=== PATIENT | male | born 1940 | race Caucasian/White ===

== ENCOUNTER 2017-04-15 10:04 | Day surgery (SDC) | payer MEDICARE ==
[~2017-04-15] VITALS: Ht 180.3 cm; Wt 78.9 kg
[2017-04-15] VITALS (8 sets, daily range): BP systolic 129–134; BP diastolic 69–75; PULSE 46–56; RESP 16–18; TEMP 97.5–97.8; O2SAT 95–98
[~2017-04-15 10:04] MED LIST: ALPR.25 PO; ASPI81 PO; ATOR40TA PO; CHLOR PO; CLIN1CAP6 PO; COUM5TAB PO; FLOR250C PO; HYDR-3129 PO; LEVE500 PO; METO50TA PO; MULT-65 PO; NS 1000P @30 MLS/HR (KVO) IV SCH; OMEP20CA5 PO; Z.0.COMMODE-3:1; Z.0.CPM; Z.0.WALKERFRONT
[2017-04-15] MEDS ORDERED: VITA10002 PO (10:49)
[2017-04-15] MEDS ORDERED: MULTTAB77 (10:49)
[2017-04-15] MEDS ORDERED: AMLO10TA2 PO (10:49)
[2017-04-15] MEDS ORDERED: HYDR-3583 PO (10:49)
[2017-04-15] MEDS ORDERED: COUM5TAB PO (10:49)
[2017-04-15] MEDS ORDERED: LISI10TA3 PO (10:49)
[2017-04-15] MEDS ORDERED: ARTIDRO EACH EYE (10:49)
[2017-04-15] MEDS ORDERED: ALPR0.25 PO (10:49)
[2017-04-15] MEDS ORDERED: LEVE500T8 PO (10:50)
[2017-04-15] MEDS ORDERED: ATOR40TA16 PO (10:50)
[2017-04-15] MEDS ORDERED: HEPARIN-NS/PF INJ 500 ML ONE (12:13)
[2017-04-15] MEDS ORDERED: MIDAZOLAM HCL 2 MG/2 ML VIAL ONE ×2 (12:15→12:33)
[2017-04-15] MEDS ORDERED: BIVALIRUDIN 250 MG VIAL ONE (12:54)
[2017-04-15] MEDS ORDERED: CLOPIDOGREL 300 MG TAB ONE ×2 (13:12→13:18)
[2017-04-15] MEDS ORDERED: NITROGLYCERIN 400 MCG/SPRAY 4.9 GM BOTTLE SL ONE (13:15)
[2017-04-15] MEDS ORDERED: TEMAZEPAM 15 MG CAP PO PRN (13:15)
[2017-04-15] MEDS ORDERED: LIDOCAINE 2% JELLY 30 ML TUBE TOP PRN (13:15)
[2017-04-15] MEDS ORDERED: ONDANSETRON HCL 4 MG/2 ML VIAL IVP PRN (13:15)
[2017-04-15] MEDS ORDERED: MORPHINE SULFATE 4 MG/ML INJ IV PUSH PRN (13:15)
[2017-04-15] MEDS ORDERED: ACETAMINOPHEN 325 MG TAB PO PRN (13:15)
[2017-04-15] MEDS ORDERED: BACITRACIN OINT 0.9 GM PKT TOP ONE (13:15)
[2017-04-15] MEDS ORDERED: oxyCODONE/ACETAMINOPHEN 5 MG/325 MG TAB PO PRN (13:15)
[2017-04-15] MEDS ORDERED: MISC INFORMATION XX ONE (13:15)
[2017-04-15] MEDS ORDERED: PLAV75TA29 PO (13:20)
--- NOTE | 2017-04-15 13:36 | CATHPROC ---
[facility] HIS Report Study Information Study Number Admission Scheduled Start Study Start [id number] Apr 15 2017 10:04AM 04/15/2017 Apr 15 2017 12:04PM [place] Service Cardiac Catheterization Admit Source Facility Department Other [facility] - Account General Manager Physician and Clinical Staff Initial [facility] Dental Hygiene Instructor Janel Bae,COLLEEN Recorder Wallace Crowley RCIS(BS) Guillermina Cole RCIS TECH2 Procedures Performed Procedure Location (Site) Vessel Name Coronary Angiograms LCA Left Coronary Coronary Angiograms RCA Right Coronary Drug Eluting Inflatio OM2 Mid CIRC L Heart Cath PTCA OM2 Mid CIRC Wire insertion Fem Art (right) Femoral Art Equipment Time Service Administrator Description Size Mfg Part Number Used/Scraped TRANSDUCER, TRUWAVE [id number] 12:36 BOGGS BAE * Used W/STOCKCOCK *[id number] *[id number] *[id number] *[id number] 12:36 [employer] PACK, CCL CUSTOM * Used *[id number] 12:36 [employer] SUPPORT, ARTERIAL ADULT [id number] Used [id number] 12:36 [email or web address] PACER PEN, SKIN DUAL W/ RULER * Used *[id number] 12:58 MEDTRONIC BALLOON, 2.0 X 20MM EUPHORA 20MM Used *[id number] STENT, 2.25 26 RESOLUTE [id number] 13:06 MEDTRONIC 2.25 26 Used INTEGRITY RX *[id number] 13:04 Luxr 30 ADELA INDEFLATOR Used *[id number] BAND, RADIAL COMPRESSION TR [id number] 13:12 Luxr 24CM Used SHORT 24 *[id number] SHEATH, FR6 RADIAL PRELUDE 12:36 Luxr FR 6 [id number] Used EASE 11CM [id number] 12:36 Luxr WIRE, EXCHANGE 260CM 3MMJ 260CM Used *[id number] 12:36 NYCOMED OMNIPAQUE, 350 MG, 150ML 150ML [id number] Used [id number] 12:36 [employer] BLANKET,WARM AIR CCL * Used *[id number] WIRE, RUNTHROUGH NS FLOPPY [id number] 12:59 TERUMO [employer] 180CM Used .014 180CM *[id number] Equipment Model, Serial, Lot Number and Expiration Data Description Model Number Serial Number Lot Number Expiration Date STENT, 2. 26 RESOLUTE [id number] 06-20-2018 INTEGRITY RX History: Current Medications Medication Dosage/Unit Route Frequency Last Date/Time Taken Coumadin Statins (any) History: Allergies Allergy Reaction Cymbalta UPSET STOMACH Lamotrigine UPSET STOMACH Topamax UPSET STOMACH HORSERADISH GASTRIC UPSET History: Risk Factors Family History of Hypertension Dyslipidemia Previous [place] Previous Heart Failure Premature CAD No No No No No Prior Valve Prior PCI Prior CABG Surgery No No No Cerebrovascular Peripheral Artery Chronic Lung On Dialysis Diabetes Disease Disease Disease No No No No No History: Symptoms/Diagnosis Selection Items Chest pain History: Stress Tests Stress or Imaging Studies Performed Yes Standard Exercise Stress Test No Stress Echo No Stress Test SPECT Stress Test SPECT Result Stress Test SPECT Ischemia Risk/Extent Yes Positive Intermediate Stress Test CMR No Cardiac CTA Coronary Calcium Score No No History: Other Current Smoker No Labs Hgb (g/dl) Hct (%) WBC (l/cumm) Platelets (thousands) 11.60-17.00 35.00-51.00 4.00-11.00 150.00-450.00 13.7 42 7.1 203 Glucose (mg/dl) BUN (mg/dl) Creatinine (mg/dl) BUN:Creatinine (1:x) 74.00-106.00 7.00-18.00 0.50-1.30 10.00-20.00 44 18 0.9 20 Na (meq/l) K (meq/l) 136.00-145.00 3.50-5.10 141 4.4 INR (PTT:PT) 0.90-1.10 2.3 CPK-MB (ng/ML) 0.50-3.60 Not Drawn Medication Medication Total Dose (Bolus/Oral) Medication Total Dosage/Unit 1% XYLOCAINE 20 mL ANGIOMAX BOLUS 11.8 mL FENTANYL 100 mcg NITROGLYCERIN S/L 0.4 mg NTG (IC) 200 mcg PLAVIX 600 mg RADIAL COCKTAIL 5 mL (Bolus) VERSED 3 mg Medications (Bolus/Oral) Medication Time Given Dosage/Unit Administered By Reason VERSED 04/15/2017 12:24:00 PM 1 mg Janel Bae 1 mg VERSED given in lab by Janel Bae RN in Left Wrist via Peripheral IV. Ordered by Alcon Yost. FENTANYL 04/15/2017 12:25:00 PM 50 mcg Janel Bae 50 mcg FENTANYL given in lab by Janel Bae RN in Left Wrist via Peripheral IV. Ordered by Alcon Cárdenas. 1% XYLOCAINE 04/15/2017 12:32:54 PM 20 mL Alcon Yost 20 mL 1% XYLOCAINE given in lab by Alcon Yost in Right Radial via Subcutaneous. Ordered by Alcon Yost. VERSED 04/15/2017 12:34:00 PM 1 mg Janel Bae 1 mg VERSED given in lab by Janel Bae RN in Left Wrist via Peripheral IV. Ordered by Alcon Yost. Ntg 200mcg Verapamil 2.5mg Heparin RADIAL COCKTAIL 04/15/2017 12:34:13 PM 5 mL (Bolus) Alcon Yost 2000U 5 mL (Bolus) RADIAL COCKTAIL given in lab by Janel Bae RN via Radial. Using [Solution Name]. Ordered by Alcon Yost. Reason: Ntg 200mcg FENTANYL 04/15/2017 12:35:00 PM 25 mcg Janel Bae 25 mcg FENTANYL given in lab by Janel Bae RN in Left Wrist via Peripheral IV. Ordered by Alcon Cárdenas. ANGIOMAX BOLUS 04/15/2017 12:56:00 PM 11.8 mL Janel Bae 11.8 mL ANGIOMAX BOLUS given in lab by Janel Bae RN in Left Wrist via Peripheral IV. Ordered by Alcon Yost. VERSED 04/15/2017 12:57:55 PM 1 mg Janel Bae 1 mg VERSED given in lab by Janel Bae RN in Left Wrist via Peripheral IV. Ordered by Alcon Yost. FENTANYL 04/15/2017 12:58:00 PM 25 mcg Janel Bae 25 mcg FENTANYL given in lab by Janel Bae RN in Left Wrist via Peripheral IV. Ordered by Alcon Cárdenas. NTG (IC) 04/15/2017 1:09:13 PM 200 mcg Alcon Yost 200 mcg NTG (IC) given in lab by Alcon Yost via Intra-coronary. Ordered by Alcon Yost. PLAVIX 04/15/2017 1:12:46 PM 600 mg Janel Bae 600 mg PLAVIX given in lab by Janel Bae RN via Oral. Ordered by Alcon Yost. NITROGLYCERIN S/L 04/15/2017 1:16:13 PM 0.4 mg Janel Bae 0.4 mg NITROGLYCERIN S/L given in lab by Janel Bae RN via Oral. Ordered by Alcon Yost. Medication (Drip) Medication Time Given Dosage/Unit Concentration/Unit Diluent (ml) Solutio n ANGIOMAX DRIP 04/15/2017 1:00:00 PM 1.75 mg/kg/hr 250 mg 50 NaCl .9 1.75 mg/kg/hr ANGIOMAX DRIP given in lab by Janel Bae RN in Left Wrist via Peripheral IV. Pu mp/Drip Flow = 27.54 ml/hr using NaCl .9 with a concentration of 250 mg in 50 ml. Ordered by Alcon Yost. IV Solutions 04/15/2017 12:07:34 PM 0 mL (IV) 500 NaCl .9 Patient arrived on IV Solutions in Left Wrist via Peripheral IV. Pump/Drip Flow = 20 ml/hr using NaCl .9. Initial Case Assessment Cardiovascular HR Rhythm NIBP Chest Pain 51 SINUS FIDEL 123/61 0 Edema Present Skin color Skin None Normal Warm Dry Circulatory - Right Pulses Dorsalis Pedis Femoral Radial 3 3 2 Scale (0,1,2,3,4,d) Circulatory - Left Pulses Dorsalis Pedis Femoral Radial 3 3 Scale (0,1,2,3,4,d) Circulatory - Lower Extremities Color Lower Right Color Lower Left Normal Normal Neurological State Oriented to time-place- Alert Moves all extremities person Respiration - General SpO2 (%) 95 Final Case Assessment Cardiovascular HR Rhythm NIBP Chest Pain 51 SINUS FIDEL 123/61 0 Edema Present Skin color Skin None Normal Warm Dry Circulatory - Right Pulses Dorsalis Pedis Femoral Radial 3 3 2 Scale (0,1,2,3,4,d) Circulatory - Left Pulses Dorsalis Pedis Femoral Radial 3 3 Scale (0,1,2,3,4,d) Circulatory - Lower Extremities Color Lower Right Color Lower Left Normal Normal Neurological State Oriented to time-place- Alert Moves all extremities person Respiration - General SpO2 (%) 95 Chronological Log Time Study Chronological Log 12:07:00 Patient arrived via Bed. 12:07:11 Patient Name, D.O.B, / Armband Verified By R.N. 12:07:12 Consent signed by the physician and the patient and verified by the Account General Manager staff. 12:07:13 Pre-op and post- op instructions given; patient acknowledges understanding of instructions. 12:07:20 Allens test performed on the right radial and ulnar artery. 12:07:25 Patient has been NPO for Less than 6Hrs. 12:07:27 Skin Breakdown- 12:07:30 Patient Warmer Placed on the Table. 12:07:33 A # 20 IV was noted in the Wrist (left). Grade = 0 12:07:34 Patient arrived on IV Solutions in Left Wrist via Peripheral IV. Pump/Drip Flow = 20 ml/hr using NaCl .9. 12:07:35 History and physical on the chart or being dictated. Assessment: Initial Case, HR=51 BPM, Rhythm=SINUS FIDEL, GPNP=142/61 mmhg, Chest Pain=0, Edema= None, Color=Normal, Skin = Warm, Dry Right Pulses: Fransico Ped=3, Femoral=3, Radial=2 Left Pulses: Fransico Ped=3, Femoral=3 12:07:36 Lower Right Extremities: Color=Normal Lower Left Extremities: Color=Normal Neurological: State=Alert, Ox3, ANTUNEZ Respiration: SpO2=95 % Vitals capture started with the following parameters, Patient=Adult, Interval=5 min, Initial Pr ecmprh=659 mmHg, 12:22:06 Deflation Rate=5 mmHg 12:22:50 HR=48 bpm, PQXP=151/61 mmhg, SpO2=97.0 %, Resp=11 B/min, Pain=0, Madelin=10, Ahumada=2 12:23:00 MD arrived. 12:24:00 1 mg VERSED given in lab by Janel Bae, RN in Left Wrist via Peripheral IV. Ordered by Alcon Yost. 12:25:00 50 mcg FENTANYL given in lab by Janel Bae, COLLEEN in Left Wrist via Peripheral IV. Orde red by Alcon Yost. 12:27:41 HR=54 bpm, KNBM=710/70 mmhg, SpO2=95.0 %, Resp=39 B/min, Pain=0, Madelin=10, Ahumada=2 12:29:22 Bilateral groins prepped with 2% chlorhexidine, and with a 3 min. waiting time. 12:32:40 HR=50 bpm, FKRV=419/64 mmhg, SpO2=95.0 %, Resp=15 B/min, Pain=0, Madelin=10, Ahumada=2 Time Out. Correct patient, correct procedure,correct physician, ,power injector loaded or not l oaded with contrast with 12:32:46 surgical team present. Time Out Concurred by MD, individual staff and SPONSORSHIP COORDINATOR in procedure 12:32:53 Case Start 12:32:54 20 mL 1% XYLOCAINE given in lab by Alcon Yost in Right Radial via Subcutaneous. Ordered by Alcon Yost. 12:34:00 1 mg VERSED given in lab by Janel Bae RN in Left Wrist via Peripheral IV. Ordered by Alcon Yost. 12:34:08 Access site was RIGHT Radial Artery. A SHEATH, FR6 RADIAL PRELUDE EASE 11CM FR 6 was advanced into the Radial (right) using the Perc utaneous 12:34:09 technique. 5 mL (Bolus) RADIAL COCKTAIL given in lab by Janel Bae RN via Radial. Using [Solution Name]. Ordered by 12:34:13 Alcon Yost. Reason: Ntg 200mcg 12:35:00 25 mcg FENTANYL given in lab by Janel Bae RN in Left Wrist via Peripheral IV. Orde red by Alcon Yost. 12:35:05 Pressure channel 1 zeroed. A JR 5.0 INFINITI CATHETER FR 6 was advanced over a wire. OMNIPAQUE, 350 MG, 150ML 150ML was us ed for 12:36:12 injections. 12:36:33 Reference ECG taken 12:37:43 HR=50 bpm, CJXG=521/61 mmhg, SpO2=86.0 %, Resp=10 B/min, Pain=0, Madelin=10, Ahumada=2 Recorded Pressure: LV, HR=55, Condition=Condition 1 12:39:58 (Left Ventricle) LV 111/-3/6 Recorded Pressure: LV, Ao, HR=52, Condition=Condition 1 12:40:23 (Left Ventricle) LV 111/-2/8, (Aorta) Ao 106/51/73 Recorded Pressure: Ao, HR=50, Condition=Condition 1 12:40:38 (Aorta) Ao 99/48/69 12:42:07 The RCA was injected and visualized at various angles. OMNIPAQUE, 350 MG, 150ML 150ML used . After removing the current catheter a JL 3.5 INFINITI CATHETER FR 6 was advanced over a WIRE, E XCHANGE 260CM 12:42:41 3MMJ 260CM. 12:42:46 HR=51 bpm, HLNV=320/63 mmhg, SpO2=96.0 %, Resp=14 B/min, Pain=0, Madelin=10, Ahumada=2 12:45:20 The LCA was injected and visualized at various angles. OMNIPAQUE, 350 MG, 150ML 150ML used . 12:47:43 HR=48 bpm, NLCM=875/56 mmhg, SpO2=97.0 %, Resp=12 B/min, Pain=0, Madelin=10, Ahumada=2 12:52:42 HR=49 bpm, IFRD=791/59 mmhg, SpO2=98.0 %, Resp=42 B/min, Pain=0, Madelin=10, Ahumada=2 After removing the current catheter a JL 4.0 GUIDE CATHETER FR 6 was advanced over a WIRE, EXCH PAU 260CM 12:54:52 3MMJ 260CM. 11.8 mL ANGIOMAX BOLUS given in lab by Janel Bae RN in Left Wrist via Peripheral IV. O rdered by Priyank 12:56:00 Alcon. 12:57:55 1 mg VERSED given in lab by Janel Bae RN in Left Wrist via Peripheral IV. Ordered by Alcon Yost. 12:58:00 25 mcg FENTANYL given in lab by Janel Bae RN in Left Wrist via Peripheral IV. Orde red by Alcon Yost. 12:58:14 HR=51 bpm, FTQW=741/74 mmhg, SpO2=97.0 %, Resp=22 B/min 12:58:19 A WIRE, RUNTHROUGH NS FLOPPY .014 180CM 180CM was inserted via Fem Art (right). 1.75 mg/kg/hr ANGIOMAX DRIP given in lab by Janel Bae RN in Left Wrist via Peripheral IV. Pump/Drip Flow 13:00:00 = 27.54 ml/hr using NaCl .9 with a concentration of 250 mg in 50 ml. Ordered by Alcon Yost. 13:01:30 Interventional wire has crossed the lesion 13:02:42 HR=59 bpm, KWIQ=254/88 mmhg, SpO2=97.0 %, Resp=27 B/min, Pain=0, Madelin=10, Ahumada=2 A BALLOON, 2.0 X 20MM EUPHORA 20MM was inserted over WIRE, RUNTHROUGH NS FLOPPY .014 180CM 180C M via 13:02:49 the Radial (right). A BALLOON, 2.0 X 20MM EUPHORA 20MM over a WIRE, RUNTHROUGH NS FLOPPY .014 180CM 180CM in the OM 2 Mid 13:03:09 was inflated using a 30 ADELA INDEFLATOR at 6 adela for 33 sec. A BALLOON, 2.0 X 20MM EUPHORA 20MM over a WIRE, RUNTHROUGH NS FLOPPY .014 180CM 180CM in the OM 2 Mid 13:03:55 was inflated using a 30 ADELA INDEFLATOR at 6 adela for 22 sec. 13:05:40 Balloon Removed. A STENT, 2.25 26 RESOLUTE INTEGRITY RX 2.25 26 was advanced through a JL 4.0 GUIDE CATHETER FR 6 over a 13:06:26 WIRE, RUNTHROUGH NS FLOPPY .014 180CM 180CM. A STENT, 2.25 26 RESOLUTE INTEGRITY RX 2.25 26 was deployed using a 30 ADELA INDEFLATOR at 9 atmo spheres for 13:06:54 18 seconds in the OM2 Mid. 13:07:43 HR=52 bpm, AOAC=231/77 mmhg, SpO2=98.0 %, Resp=23 B/min, Pain=0, Madelin=10, Ahumada=2 13:08:00 Delivery device removed 13:09:13 200 mcg NTG (IC) given in lab by Alcon Yost via Intra-coronary. Ordered by Jemima Yost en. 13:11:31 Wire removed 13:11:39 Catheter was removed 13:12:12 Case End 13:12:46 HR=49 bpm, WIUM=971/68 mmhg, SpO2=98.0 %, Resp=48 B/min, Pain=0, Madelin=10, Ahumada=2 13:12:46 600 mg PLAVIX given in lab by Janel Bae, COLLEEN via Oral. Ordered by Alcon Yost. Assessment: Final Case, HR=51 BPM, Rhythm=SINUS FIDEL, HPOO=008/61 mmhg, Chest Pain=0, Edema=No ne, Color=Normal, Skin = Warm, Dry Right Pulses: Fransico Ped=3, Femoral=3, Radial=2 Left Pulses: Fransico Ped=3, Femoral=3 13:13:31 Lower Right Extremities: Color=Normal Lower Left Extremities: Color=Normal Neurological: State=Alert, Ox3, ANTUNEZ Respiration: SpO2=95 % Radial Compression Device Used. 10 mLs of air placed in BAND, RADIAL COMPRESSION TR SHORT 24 24 CM. Affected 13:14:15 hand 98 % O2 saturation. 13:14:47 Sterile dressing applied to site 13:14:48 No case complications noted. 13:14:49 Cine recording checked. 13:15:01 Bedside Report will be given. 13:15:02 Implantable Device card placed in patient's chart. 13:15:03 Contrast Scanned 13:15:08 A Left Heart Cath was performed. 13:16:13 0.4 mg NITROGLYCERIN S/L given in lab by Janel Bae RN via Oral. Ordered by Alcon Yost. 13:17:48 HR=49 bpm, ACUA=771/68 mmhg, SpO2=99.0 %, Resp=12 B/min, Pain=0, Madelin=10, Ahumada=2 13:23:00 [facility] - Contrast Media Used In Study Contrast Total Opened (mL) Total Used (mL) Total Wasted (mL) Omnipaque 180 180 0 End Study - Maximum Contrast Load Max Contrast Load (mL) 437.1 End Study - Radiation Exposure Fluoro Time (minutes) 8.4 End Study - Patient Disposition Complications Transferred To Interventional Outcome No Telemetry Bed successful
--- NOTE | 2017-04-15 14:18 | MA ---
cc: JOSE ANGEL TAO DATE: 04/15/2017 INDICATION Unstable angina. PROCEDURE PERFORMED 1. Fluoroscopy with interpretation. 2. Coronary angiography. 3. Left heart catheterization. 4. Percutaneous intervention with drug-eluting stent to the second obtuse marginal branch. METHOD The risks, benefits and alternatives were discussed with the patient. The patient understood and consented to the procedure. The patient was brought to the catheterization lab and placed on the catheterization table. Right wrist was prepped and draped in sterile fashion. Right wrist was anesthetized with 2% lidocaine. Right radial artery was cannulated and a 6-Mexican 7 cm sheath was placed without difficulty. LEFT HEART CATHETERIZATION A 6-Mexican JR-5 catheter was advanced across the aortic valve without difficulty. Intraventricular hemodynamics measured at 111 over 2 mmHg. Left end-diastolic pressure was 12 mmHg. No significant aortic stenosis by transaortic valve or pullback gradient. CORONARY ANGIOGRAPHY 1. Left main is short but angiographically normal. 2. Left anterior descending artery has 30% stenosis proximally. Midsegment also has 30% stenosis. The distal left anterior descending coronary artery has mild luminal irregularities. 3. Left circumflex has mild luminal irregularities, about 30% stenosis throughout the proximal mid segment. There is a first obtuse marginal branch with some mild luminal irregularities. Second obtuse marginal branch has 75% seven tandem stenosis. Third obtuse marginal branch has mild luminal irregularities. 4. The right coronary is dominant vessel giving rise to small posterior descending branch. Right coronary has 50% stenosis in the mid segment. PERCUTANEOUS INTERVENTION Given the patient's continued ongoing symptoms, we elected to proceed with revascularization. He is having some intermittent chest pain throughout the intervention suggestive that this was hemodynamically significant. Angiomax was administered throughout the entire procedure to maintain appropriate anticoagulation. Left coronary circulation was selectively engaged with a 6-Mexican JL-4 catheter. 0.014 inch 180 cm Fanzo run-through wire was navigated down the distal second obtuse marginal branch without difficulty. A 2.0 x 20 mm RX Euphora balloon was deployed on two sequential inflations in the second obtuse marginal branch. Repeat angiography still showed severe residual stenosis. A 2.25 x 26 mm RX Resolute drug-eluting stent was advanced down the second obtuse marginal branch and deployed. Repeat angiography showed no residual stenosis, CHER III flow. Wire was removed. Guide catheter was removed. HemoBand was applied. CONCLUSION 1. Severe second obtuse marginal branch stenosis. 2. Successful percutaneous intervention with drug-eluting stent to the second obtuse marginal branch. 3. Normal left-sided filling pressure. PLAN Hopefully this will translate well with symptomatic improvement. The patient will be monitored closely for any post procedural complications. Anticipate discharge tomorrow. MD PIOTR Cazares/CATRACHITO /1:15 PM /2:00 PM
[2017-04-15] MEDS ORDERED: IOHEXOL 350 MG/ML 100 ML BTL (for Cath Lab) OTHER ONE (14:42)
[2017-04-15] MEDS ORDERED: BIVALIRUDIN INJ 250 MG in SODIUM CHLORIDE 0.9% INJ 50 ML IV SCH (15:00)
[2017-04-15] MEDS: oxyCODONE/ACETAMINOPHEN 10 MG/325 MG TAB PO PRN ×2 (16:46→21:45)
[2017-04-15] MEDS: SODIUM CHLOR 0.9% 1000 ML INJ 1,000 ML IV SCH ×2 (16:47→23:13)
[2017-04-15] MEDS: LISINOPRIL 10 MG TAB PO SCH (21:44)
[2017-04-15] MEDS: levETIRAcetam 500 MG TAB PO SCH (21:44)
[2017-04-16] VITALS (10 sets, daily range): BP systolic 125–133; BP diastolic 59–69; PULSE 49–76; RESP 18; TEMP 97.7–97.9; O2SAT 97–99
[2017-04-16 06:14] LABS: AUTOMATED NEUTROPHIL # 4.7 TH/MM3 (1.8-7.7); BASOPHIL % 0.5 % (0.0-2.0); EOSINOPHIL # 0.2 TH/MM3 (0-0.4); EOSINOPHIL % 2.4 % (0.0-4.0); HEMATOCRIT 38.7 % (39.0-51.0); HEMO FLAGS DIFF FINAL; LYMPH % 23.1 % (9.0-44.0); LYMPHOCYTE # 1.7 TH/MM3 (1.0-4.8); MEAN CELL VOLUME 94.3 FL (80.0-100.0); MEAN CORPUSCULAR HEMOGLOBIN 31.9 PG (27.0-34.0); MEAN CORPUSCULAR HGB CONC 33.9 % (32.0-36.0); PLATELET COUNT 149 TH/MM3 (150-450); RED CELL DISTRIBUTION WIDTH 13.2 % (11.6-17.2); WHITE BLOOD COUNT 7.4 TH/MM3 (4.0-11.0)
[2017-04-16 06:45] LABS: BICARBONATE 25.4 MEQ/L (21.0-32.0); POTASSIUM 4.1 MEQ/L (3.5-5.1)
[2017-04-16 06:48] LABS: HDL CHOLESTEROL 35.7 MG/DL (40.0-60.0)
[2017-04-16] MEDS ORDERED: ISOSORBIDE MONONITRATE 60 MG TAB PO SCH (07:00)
--- NOTE | 2017-04-16 07:51 | PD.CARD.PN ---
Subjective Subjective Remarks denies any angina Objective Vital Signs / I&O Vital Signs Date Time Temp Pulse Resp B/P Pulse Ox O2 Delivery O2 Flow Rate FiO2 04/16/17 06:06 54 04/16/17 05:14 53 04/16/17 04:17 49 04/16/17 03:25 55 04/16/17 03:25 97.9 50 18 133/69 99 04/16/17 02:20 49 04/16/17 01:25 54 04/16/17 00:05 52 04/15/17 23:50 97.8 51 16 131/70 96 04/15/17 23:50 50 04/15/17 22:00 49 04/15/17 21:00 50 04/15/17 20:00 56 04/15/17 19:15 97.8 52 18 134/69 98 04/15/17 19:00 53 04/15/17 16:00 97.7 46 18 130/75 98 04/15/17 13:27 99 Room Air 04/15/17 10:51 97.5 56 18 129/75 95 I/O 04/15/17 04/15/17 04/15/17 04/16/17 04/16/17 04/16/17 07:00 15:00 23:00 07:00 15:00 23:00 Intake Total 740 ml 978 ml Output Total 500 ml 1225 ml Balance 240 ml -247 ml Intake Oral 540 ml 480 ml IV Total 200 ml 498 ml Output Urine Total 500 ml 1225 ml # Voids 3 Physical Exam GENERAL: Well-nourished, well-developed patient in no apparent distress. NECK: No JVD. No carotid bruit. CARDIOVASCULAR: Regular rate and rhythm. S1/S2 no murmur, rub, or gallop. RESPIRATORY: No accessory muscle use. Clear to auscultation. Breath sounds equal bilaterally. GASTROINTESTINAL: Abdomen soft, non-tender, nondistended. MUSCULOSKELETAL: Extremities without clubbing, cyanosis, or edema. right radial pulse 2+ Laboratory Laboratory Tests Test 04/15/17 04/16/17 10:35 05:23 Blood Type A POSITIVE Antibody Screen NEGATIVE White Blood Count 7.4 TH/MM3 Red Blood Count 4.10 MIL/MM3 Hemoglobin 13.1 GM/DL Hematocrit 38.7 % Mean Corpuscular Volume 94.3 FL Mean Corpuscular Hemoglobin 31.9 PG Mean Corpuscular Hemoglobin 33.9 % Concent Red Cell Distribution Width 13.2 % Platelet Count 149 TH/MM3 Mean Platelet Volume 8.9 FL Neutrophils (%) (Auto) 64.0 % Lymphocytes (%) (Auto) 23.1 % Monocytes (%) (Auto) 10.0 % Eosinophils (%) (Auto) 2.4 % Basophils (%) (Auto) 0.5 % Neutrophils # (Auto) 4.7 TH/MM3 Lymphocytes # (Auto) 1.7 TH/MM3 Monocytes # (Auto) 0.7 TH/MM3 Eosinophils # (Auto) 0.2 TH/MM3 Basophils # (Auto) 0.0 TH/MM3 CBC Comment DIFF FINAL Differential Comment Sodium Level 138 MEQ/L Potassium Level 4.1 MEQ/L Chloride Level 104 MEQ/L Carbon Dioxide Level 25.4 MEQ/L Anion Gap 9 MEQ/L Blood Urea Nitrogen 15 MG/DL Creatinine 0.99 MG/DL Estimat Glomerular Filtration 73 ML/MIN Rate Random Glucose 89 MG/DL Calcium Level 8.6 MG/DL Total Creatine Kinase 51 U/L Triglycerides Level 99 MG/DL Cholesterol Level 109 MG/DL LDL Cholesterol 54 MG/DL HDL Cholesterol 35.7 MG/DL Cholesterol/HDL Ratio 3.05 RATIO Assessment and Plan Problem List: (1) Atrial fibrillation (2) Hypertension Assessment and Plan CAD s/p PCI DINO OM2 - on Plavix, ASA, FILIPPO-I, Isosorbide. No BB due to bradycardia. Will start atorvastatin 40 mg daily. Importance of diet and exercise explained to the patient. He will f/u in our office in one week HTN - well controlled A-fib - remain in sinus rhythm Wenceslao Pedersen Apr 16, 2017 07:51
[2017-04-16] MEDS: LISINOPRIL 10 MG TAB PO SCH (08:21)
[2017-04-16] MEDS: oxyCODONE/ACETAMINOPHEN 10 MG/325 MG TAB PO PRN (08:22)
[2017-04-16] MEDS: levETIRAcetam 500 MG TAB PO SCH (08:22)
[2017-04-16] MEDS ORDERED: CLOPIDOGREL 75 MG TAB PO SCH (09:00)
[2017-04-16] MEDS ORDERED: ASPIRIN 81 MG CHEW TAB PO SCH (09:00)
[2017-04-16] MEDS ORDERED: ATORVASTATIN 40 MG TAB PO SCH (09:00)
--- NOTE | 2017-04-16 13:55 | EKG ---
Date Performed: 04/16/2017 Time Performed: 05:52:10 PTAGE: 76 years EKG: Sinus bradycardia with borderline 1st degree A-V block Low QRS voltages in limb leads Since previous tracing, no significant change noted Borderline ECG PREVIOUS TRACING : 06/01/2016 16.51 DOCTOR: Ceferino Mccabe Interpretating Date/Time 04/16/2017 13:55:29
== END 2017-04-16 11:23 | disposition home or self-care (01) ==
LOC: HDOC 10:04 → HDIC 10:04 → HCIN 16:02 → HDOC 04-16 11:23
PROVIDERS: ATTEND Internal Medicine
DX: I25.110 Atherosclerotic heart disease of native coronary artery with unstable angina pectoris (principal); R06.02 Shortness of breath; I10 Essential (primary) hypertension; I48.91 Unspecified atrial fibrillation; Z87.891 Personal history of nicotine dependence; R00.1 Bradycardia, unspecified
CPT/HCPCS: 80048; 80061; 82550; 85025; 86850; 86900; 86901; 93005; 93454; C1725; C1769; C1874; C1887; C1893; J0583; J1644; J2250; J3010; J7030; Q9967

== ENCOUNTER 2017-06-28 11:16 | Observation (INO) | payer MEDICARE ==
[~2017-06-28] VITALS: Ht 180.3 cm; Wt 82.0 kg
[2017-06-28] VITALS (8 sets, daily range): BP systolic 138–161; BP diastolic 67–82; PULSE 46–58; RESP 16–20; TEMP 97.6–98.5; O2SAT 96–100
[~2017-06-28 11:16] MED LIST changes: -ALPR.25 PO; +ALPR0.25 PO; +AMLO10TA2 PO; +ARTIDRO EACH EYE; -ASPI81 PO; -ATOR40TA PO; +ATOR40TA16 PO; -CHLOR PO; -CLIN1CAP6 PO; -FLOR250C PO; -HYDR-3129 PO; +HYDR-3583 PO; -LEVE500 PO; +LEVE500T8 PO; +LISI10TA3 PO; -METO50TA PO; -MULT-65 PO; +MULTTAB77; -NS 1000P @30 MLS/HR (KVO) IV SCH; -OMEP20CA5 PO; +PLAV75TA29 PO; +VITA10002 PO; -Z.0.COMMODE-3:1; -Z.0.CPM; -Z.0.WALKERFRONT
[2017-06-28] MEDS ORDERED: ASPIRIN 81 MG CHEW TAB PO ONE (11:45)
--- NOTE | 2017-06-28 12:00 | PD ---
HPI Chief Complaint: Chest Pain Time Seen by Provider: 11:46 Travel History International Travel<30 days: No Contact w/Intl Traveler<30days: No Traveled to known affect area: No History of Present Illness HPI 77-year-old male presents to the emergency department for evaluation of chest pain. He states that he has been having intermittent chest pain for several weeks. He recently had a cardiac catheterization done on April 15, [address] b[address]. He had successful percutaneous intervention with drug-eluting stent to the second obtuse marginal branch. He states he followed up with Dr. bain yesterday. However, yesterday evening, on his way home from dinner, he states he had bilateral chest tightness and burning. He was nauseous at that time. He went home and took one of his hydrocodone pills and watch TV. He states he was distracted and the pain decreased. He currently rates the pain 4/5. Reports history of chronic shoulder and neck pain so is unsure if he has any radiating pain, but does not believe he does. He does report associated shortness of breath. No fevers or chills. No cough or congestion. No abdominal pain. Patient states he drinks 2 glasses of wine daily, smokes marijuana. Denies any IV drug use. He does have history of seizures, but has not had any seizures since 2004. His refrigerator car icer is Dr. Bain. No history of blood clots. No travel since March. No leg edema. PFSH Past Medical History Arthritis: Yes Anxiety: Yes Cancer: Yes Cardiovascular Problems: Yes High Cholesterol: Yes Chemotherapy: No Diabetes: No Endocrine: No Gastrointestinal Disorders: Yes (ON OMEPARAZOLE) Glaucoma: No Genitourinary: No Hepatitis: No Hiatal Hernia: No Hypertension: Yes Immune Disorder: No Musculoskeletal: Yes (Boni shoulder pain; cervical fusion; sciatica) Neurologic: No Psychiatric: No Reproductive: No Respiratory: No Radiation Therapy: No Seizures: Yes Thyroid Disease: No Past Surgical History Abdominal Surgery: Yes (Abd mesh) AICD: No Body Medical Devices: ABDOMEN MESH Cardiac Surgery: No Ear Surgery: No Eye Surgery: Yes (BONI phaco with IOL) Genitourinary Surgery: No Gynecologic Surgery: Yes (Hysterectomy) Joint Replacement: No Neurologic Surgery: Yes (ANTERIOR CERVICAL FUSION C5-6) Oral Surgery: No Pacemaker: No Thoracic Surgery: No Other Surgery: Yes (BONI CARPAL TUNNEL RELEASE, right great toe(pins)) Social History Alcohol Use: Yes (wine nitely with dinner) Tobacco Use: No (quit 20 years ago) Substance Use: No Allergies-Medications (Allergen,Severity, Reaction): Coded Allergies: topiramate (Unverified Allergy, Severe, UPSET STOMACH, 04/30/17) duloxetine (Unverified Adverse Reaction, Mild, UPSET STOMACH, 04/30/17) lamotrigine (Unverified Adverse Reaction, Mild, UPSET STOMACH , 04/30/17) Uncoded Allergies: HORSERADISH (Adverse Reaction, Mild, GASTRIC UPSET, 08/22/15) Reported Meds & Prescriptions Reported Meds & Active Scripts Active Plavix (Clopidogrel Bisulfate) 75 Mg Tab 75 Mg PO DAILY Reported Levetiracetam 500 Mg Tab 500 Mg PO BID Atorvastatin (Atorvastatin Calcium) 40 Mg Tab 40 Mg PO HS Lisinopril 10 Mg Tab 10 Mg PO BID Amlodipine (Amlodipine Besylate) 10 Mg Tab 10 Mg PO DAILY Hydrocodone-Acetaminophen 10-325 mg Tab 1 Tab PO Q4H PRN Coumadin (Warfarin) 5 Mg Tab 5 Mg PO DAILY Alprazolam 0.25 Mg Tab 0.25 Mg PO Q8H PRN Vitamin B-12 (Cyanocobalamin) 1,000 Mcg Tab 1,000 Mcg PO DAILY Multi-Day (Multiple Vitamins W/ Iron) 1 Tab Tab Artificial Tears Opth Drops (Propylene Glycol-Glycerin Opth Drops) 1-0.3% Drops 1-2 Drop EACH EYE PRN PRN Review of Systems Except as stated in HPI: all other systems reviewed are Neg Physical Exam Narrative GENERAL: Well-nourished, well-developed male patient, ambulatory. Afebrile. SKIN: Focused skin assessment warm/dry. HEAD: Normocephalic. Atraumatic. EYES: No scleral icterus. No injection or drainage. NECK: Supple, trachea midline. No JVD or lymphadenopathy. CARDIOVASCULAR: Regular rhythm without murmurs, gallops, or rubs. Patient is bradycardic with heart rate in the 50s. RESPIRATORY: Breath sounds equal bilaterally. No accessory muscle use. Lungs sounds are clear to auscultation. GASTROINTESTINAL: Abdomen soft, non-tender, nondistended. MUSCULOSKELETAL: No cyanosis, or edema. BACK: Nontender without obvious deformity. No CVA tenderness. Data Data Last Documented VS Vital Signs Date Time Temp Pulse Resp B/P (MAP) Pulse Ox O2 Delivery O2 Flow Rate FiO2 06/28/17 13:00 56 18 143/79 (100) 98 Room Air 06/28/17 11:20 97.6 Orders Orders Electrocardiogram (06/28/17 11:44) Basic Metabolic Panel (Bmp) (06/28/17 11:44) Ckmb (Isoenzyme) Profile (06/28/17 11:44) Complete Blood Count With Diff (06/28/17 11:44) Magnesium (Mg) (06/28/17 11:44) Prothrombin Time / Inr (Pt) (06/28/17 11:44) Act Partial Throm Time (Ptt) (06/28/17 11:44) Troponin I (06/28/17 11:44) Chest, Single Ap (06/28/17 11:44) Ecg Monitoring (06/28/17 11:44) Bilateral Bp Monitoring (06/28/17 11:44) Iv Access Insert/Monitor (06/28/17 11:44) Oximetry (06/28/17 11:44) Oxygen Administration (06/28/17 11:44) Aspirin Chew (Aspirin Chew) (06/28/17 11:45) Sodium Chloride 0.9% Flush (Ns Flush) (06/28/17 11:45) Admit Order (Ed Use Only) (06/28/17 14:06) Labs Laboratory Tests Test 06/28/17 12:10 White Blood Count 5.3 TH/MM3 Red Blood Count 4.10 MIL/MM3 Hemoglobin 13.0 GM/DL Hematocrit 38.3 % Mean Corpuscular Volume 93.6 FL Mean Corpuscular Hemoglobin 31.8 PG Mean Corpuscular Hemoglobin Concent 34.0 % Red Cell Distribution Width 13.3 % Platelet Count 162 TH/MM3 Mean Platelet Volume 9.2 FL Neutrophils (%) (Auto) 58.8 % Lymphocytes (%) (Auto) 23.6 % Monocytes (%) (Auto) 13.2 % Eosinophils (%) (Auto) 3.7 % Basophils (%) (Auto) 0.7 % Neutrophils # (Auto) 3.1 TH/MM3 Lymphocytes # (Auto) 1.3 TH/MM3 Monocytes # (Auto) 0.7 TH/MM3 Eosinophils # (Auto) 0.2 TH/MM3 Basophils # (Auto) 0.0 TH/MM3 CBC Comment DIFF FINAL Differential Comment Prothrombin Time 23.2 SEC Prothromb Time International Ratio 2.0 RATIO Activated Partial Thromboplast Time 33.1 SEC Blood Urea Nitrogen 15 MG/DL Creatinine 0.99 MG/DL Random Glucose 104 MG/DL Calcium Level 8.3 MG/DL Magnesium Level 2.3 MG/DL Sodium Level 138 MEQ/L Potassium Level 4.2 MEQ/L Chloride Level 107 MEQ/L Carbon Dioxide Level 24.4 MEQ/L Anion Gap 7 MEQ/L Estimat Glomerular Filtration Rate 73 ML/MIN Total Creatine Kinase 75 U/L Troponin I LESS THAN 0.02 NG/ML MDM Medical Decision Making Medical Screen Exam Complete: Yes Emergency Medical Condition: Yes Medical Record Reviewed: Yes Interpretation(s) chest x-ray - CONCLUSION: No acute disease. Differential Diagnosis ACS versus chest wall pain versus anxiety versus pneumonia versus GERD Narrative Course 77-year-old male presents to the emergency department for evaluation of bilateral chest pain that has been ongoing for several weeks, but worsened last night. Switcher is Dr. bain. EKG shows sinus bradycardia, no acute ST changes. CBC, BMP, CK, troponin, PTT, PT/INR, chest x-ray are ordered and pending. Patient is given aspirin 162 mg by mouth. CBC shows no acute abnormality. BMP shows no acute abnormality. CK is 75. Troponin is less than 0.02. PTT is 33.1. PT/INR is 23.2/2.0. Chest x-ray shows no acute disease. 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 Tomas Adamson. He reviewed chart. He recommends admission to the chest pain center for further evaluation. Patient is agreeable to this. Diagnosis Primary Impression: Chest pain Qualified Codes: R07.9 - Chest pain, unspecified Admitting Information Admitting Physician Requests: Juju Coffey Jun 28, 2017 12:00
--- NOTE | 2017-06-28 12:21 | RADRPT ---
EXAM DATE/TIME: 06/28/2017 11:51 [facility] COMPARISON: CHEST SINGLE AP, May 29, 2016, 15:06. INDICATIONS : Short of breath. MEDICAL HISTORY : Hypertension. SURGICAL HISTORY : None. ENCOUNTER: Initial ACUITY: 1 day PAIN SCORE: 0/10 LOCATION: Bilateral chest FINDINGS: A single view of the chest demonstrates the lungs to be symmetrically aerated without evidence of mas s, infiltrate or effusion. The cardiomediastinal contours are unremarkable. Osseous structures are intact. CONCLUSION: No acute disease. Trav Diana MD FACR on June 28, 2017 at 12:19 Board Certified Radiologist. This report was verified electronically.
[2017-06-28 12:29] LABS: AUTOMATED NEUTROPHIL # 3.1 TH/MM3 (1.8-7.7); BASOPHIL % 0.7 % (0.0-2.0); EOSINOPHIL # 0.2 TH/MM3 (0-0.4); EOSINOPHIL % 3.7 % (0.0-4.0); HEMATOCRIT 38.3 % (39.0-51.0); HEMO FLAGS DIFF FINAL; LYMPH % 23.6 % (9.0-44.0); LYMPHOCYTE # 1.3 TH/MM3 (1.0-4.8); MEAN CELL VOLUME 93.6 FL (80.0-100.0); MEAN CORPUSCULAR HEMOGLOBIN 31.8 PG (27.0-34.0); MONO % 13.2 % (0.0-8.0); NEUT % 58.8 % (16.0-70.0); PLATELET COUNT 162 TH/MM3 (150-450); RED CELL DISTRIBUTION WIDTH 13.3 % (11.6-17.2); WHITE BLOOD COUNT 5.3 TH/MM3 (4.0-11.0)
[2017-06-28 12:37] LABS: APTT (PATIENT) 33.1 SEC (24.3-30.1); PROTHROMBIN TIME - PATIENT 23.2 SEC (9.8-11.6)
[2017-06-28 12:51] LABS: ANION GAP 7 MEQ/L (5-15); BICARBONATE 24.4 MEQ/L (21.0-32.0); BLOOD UREA NITROGEN 15 MG/DL (7-18); CHLORIDE 107 MEQ/L (98-107); GLOMERULAR FILTRATION RATE 73 ML/MIN (>89); MAGNESIUM 2.3 MG/DL (1.5-2.5); POTASSIUM 4.2 MEQ/L (3.5-5.1); SODIUM (NA) 138 MEQ/L (136-145)
[2017-06-28 13:06] LABS: CREATINE KINASE 75 U/L (39-308)
--- NOTE | 2017-06-28 14:21 | PD ---
Data Data Last Documented VS Vital Signs Date Time Temp Pulse Resp B/P (MAP) Pulse Ox O2 Delivery O2 Flow Rate FiO2 06/28/17 13:00 56 18 143/79 (100) 98 Room Air 06/28/17 11:20 97.6 Orders Orders Electrocardiogram (06/28/17 11:44) Basic Metabolic Panel (Bmp) (06/28/17 11:44) Ckmb (Isoenzyme) Profile (06/28/17 11:44) Complete Blood Count With Diff (06/28/17 11:44) Magnesium (Mg) (06/28/17 11:44) Prothrombin Time / Inr (Pt) (06/28/17 11:44) Act Partial Throm Time (Ptt) (06/28/17 11:44) Troponin I (06/28/17 11:44) Chest, Single Ap (06/28/17 11:44) Ecg Monitoring (06/28/17 11:44) Bilateral Bp Monitoring (06/28/17 11:44) Iv Access Insert/Monitor (06/28/17 11:44) Oximetry (06/28/17 11:44) Oxygen Administration (06/28/17 11:44) Aspirin Chew (Aspirin Chew) (06/28/17 11:45) Sodium Chloride 0.9% Flush (Ns Flush) (06/28/17 11:45) Admit Order (Ed Use Only) (06/28/17 14:06) Labs Laboratory Tests Test 06/28/17 12:10 White Blood Count 5.3 TH/MM3 Red Blood Count 4.10 MIL/MM3 Hemoglobin 13.0 GM/DL Hematocrit 38.3 % Mean Corpuscular Volume 93.6 FL Mean Corpuscular Hemoglobin 31.8 PG Mean Corpuscular Hemoglobin Concent 34.0 % Red Cell Distribution Width 13.3 % Platelet Count 162 TH/MM3 Mean Platelet Volume 9.2 FL Neutrophils (%) (Auto) 58.8 % Lymphocytes (%) (Auto) 23.6 % Monocytes (%) (Auto) 13.2 % Eosinophils (%) (Auto) 3.7 % Basophils (%) (Auto) 0.7 % Neutrophils # (Auto) 3.1 TH/MM3 Lymphocytes # (Auto) 1.3 TH/MM3 Monocytes # (Auto) 0.7 TH/MM3 Eosinophils # (Auto) 0.2 TH/MM3 Basophils # (Auto) 0.0 TH/MM3 CBC Comment DIFF FINAL Differential Comment Prothrombin Time 23.2 SEC Prothromb Time International Ratio 2.0 RATIO Activated Partial Thromboplast Time 33.1 SEC Blood Urea Nitrogen 15 MG/DL Creatinine 0.99 MG/DL Random Glucose 104 MG/DL Calcium Level 8.3 MG/DL Magnesium Level 2.3 MG/DL Sodium Level 138 MEQ/L Potassium Level 4.2 MEQ/L Chloride Level 107 MEQ/L Carbon Dioxide Level 24.4 MEQ/L Anion Gap 7 MEQ/L Estimat Glomerular Filtration Rate 73 ML/MIN Total Creatine Kinase 75 U/L Troponin I LESS THAN 0.02 NG/ML MDM Supervised Visit with PRATIK: Yes Narrative Course The history, exam, and medical decision-making in the associated midlevel provider note were completed with my assistance. I reviewed and agree with the findings presented. I attest that I had a [id number] encounter with the patient on the same day, and personally performed and documented my assessment and findings in the medical record. *My assessment and Findings this is a 77-year-old male who presents to the emergency department having had a stent placed [address] Yost with increasing chest discomfort. EKG is nonischemic. Initial troponin is negative. We spoke to Dr. Marin who was on-call for cardiology who recommended the patient be placed in the chest pain center. Sandy Carrillo MD Jun 28, 2017 14:21
--- NOTE | 2017-06-28 15:23 | HHI.HP ---
[facility] Primary Care Physician Mckay Carranza M.D. Chief Complaint Chest pain History of Present Illness This is a 77-year-old male that presents to ED via private vehicle with history of CAD with a drug-eluting stent to the circumflex March [address] Bain that presents to ED to evaluate chest discomfort. He states that he did feel better for about a month after his stent. However for the past month he has had intermittent chest discomfort in the center/left of his chest that he describes as a dull discomfort. It occurs about twice a week and out of the blue. Nonexertional and and states he really does nothing exertional. No associated shortness of breath, nausea, or diaphoresis. He saw Dr. Bain yesterday for medication review as he is getting headaches with one medication he was placed on. He states the medication was discontinued yesterday. Cannot recall the name of it but we believe it is Imdur. Then last evening while he was driving home he developed a crushing discomfort across his chest read as a 7-8 out of 10. States it is a similar discomfort that he had when eating a stent however this episode was more intense. Denies shortness of breath, nausea, or diaphoresis with less sense episode. It lasted 2 hours. Did not radiate. Found nothing to worsen or improve it. Review of Systems General: Patient denies fevers, chills recent, and recent travel HEENT: Patient denies sore throat, difficulty swallowing. Cardiovascular: Has the chest discomfort as mentioned above. Denies sensation of heart beating rapidly or irregularly. No syncope. Denies diaphoresis. Respiratory: Denies shortness of breath or inspirational chest discomfort. Denies coughing wheezing or hemoptysis. GI: Patient denies nausea, vomiting, diarrhea, abdominal pain, bloody stools. Musculoskeletal: Patient denies joint pain or edema. Denies calf pain or edema. Neurovascular: Patient denies numbness, tingling, weakness in extremities. States he began having headache after being started on Imdur, the medication was discontinued yesterday. Endocrine: Denies polyuria and polydipsia. Hematologic: Denies easy bruising. Skin: Denies rash or itching. Past Family Social History Allergies: Coded Allergies: topiramate (Unverified Allergy, Severe, UPSET STOMACH, 04/30/17) duloxetine (Unverified Adverse Reaction, Mild, UPSET STOMACH, 04/30/17) lamotrigine (Unverified Adverse Reaction, Mild, UPSET STOMACH , 04/30/17) Uncoded Allergies: HORSERADISH (Adverse Reaction, Mild, GASTRIC UPSET, 08/22/15) Past Medical History CAD with stent March 2017. Hypertension, hyperlipidemia, GERD, paroxysmal atrial fibrillation. Denies diabetes. Past Surgical History Cardiac catheterization with stenting March 2017. Reported Medications Reported Meds & Active Scripts Active Plavix (Clopidogrel Bisulfate) 75 Mg Tab 75 Mg PO DAILY Reported Levetiracetam 500 Mg Tab 500 Mg PO BID Atorvastatin (Atorvastatin Calcium) 40 Mg Tab 40 Mg PO HS Lisinopril 10 Mg Tab 10 Mg PO BID Amlodipine (Amlodipine Besylate) 10 Mg Tab 10 Mg PO DAILY Hydrocodone-Acetaminophen 10-325 mg Tab 1 Tab PO Q4H PRN Coumadin (Warfarin) 5 Mg Tab 5 Mg PO DAILY Alprazolam 0.25 Mg Tab 0.25 Mg PO Q8H PRN Vitamin B-12 (Cyanocobalamin) 1,000 Mcg Tab 1,000 Mcg PO DAILY Multi-Day (Multiple Vitamins W/ Iron) 1 Tab Tab Artificial Tears Opth Drops (Propylene Glycol-Glycerin Opth Drops) 1-0.3% Drops 1-2 Drop EACH EYE PRN PRN Active Ordered Medications Current Medications Medications (Trade) Dose Ordered Sig/Ramiro Route Start Time Stop Time Status Last Admin (NS Flush) 2 ml UNSCH PRN IVF 06/28/17 11:45 Family History There is family history of CAD. Social History Patient has not smoked in 40 years. Has on average 2 glass of wine a day in the evening. Smokes marijuana daily in the evening as well. Physical Exam Vital Signs Vital Signs Date Time Temp Pulse Resp B/P (MAP) Pulse Ox O2 Delivery O2 Flow Rate FiO2 06/28/17 13:00 56 18 143/79 (100) 98 Room Air 06/28/17 12:58 56 18 143/79 (100) 98 Room Air 147/78 (101) 06/28/17 12:28 97 Room Air 06/28/17 11:20 97.6 58 16 138/82 (100) 97 Physical Exam GENERAL: This is a well-nourished, well-developed patient, in no apparent distress. Patient speaks in clear complete sentences. Patient is pleasant. HEENT: Head is atraumatic and normocephalic. Neck is supple without lymphadenopathy and trachea is midline. No JVD or carotid bruits. CARDIOVASCULAR: Regular rate and rhythm without murmurs, gallops, or rubs. RESPIRATORY: Clear to auscultation. Breath sounds equal bilaterally. No wheezes , rales, or rhonchi. Chest wall is nontender. No use of accessory muscles. GASTROINTESTINAL: Abdomen is nontender, nondistended. Abdomen soft. No obvious pulsatile mass or bruit. No CVA tenderness. Strong femoral pulses bilaterally. Normal bowel sounds in all quadrants. MUSCULOSKELETAL: Patient is moving upper and lower extremities freely. No calf tenderness or edema, no Homans sign. Strong pulses in upper and lower extremities. NEUROLOGICAL: Patient is alert and oriented. Cranial nerves 2-12 are grossly intact. No focal deficits and speech is clear. SKIN: No rash and turgor is normal. Laboratory Laboratory Tests Test 06/28/17 12:10 White Blood Count 5.3 Red Blood Count 4.10 Hemoglobin 13.0 Hematocrit 38.3 Mean Corpuscular Volume 93.6 Mean Corpuscular Hemoglobin 31.8 Mean Corpuscular Hemoglobin Concent 34.0 Red Cell Distribution Width 13.3 Platelet Count 162 Mean Platelet Volume 9.2 Neutrophils (%) (Auto) 58.8 Lymphocytes (%) (Auto) 23.6 Monocytes (%) (Auto) 13.2 Eosinophils (%) (Auto) 3.7 Basophils (%) (Auto) 0.7 Neutrophils # (Auto) 3.1 Lymphocytes # (Auto) 1.3 Monocytes # (Auto) 0.7 Eosinophils # (Auto) 0.2 Basophils # (Auto) 0.0 CBC Comment DIFF FINAL Differential Comment Prothrombin Time 23.2 Prothromb Time International Ratio 2.0 Activated Partial Thromboplast Time 33.1 Blood Urea Nitrogen 15 Creatinine 0.99 Random Glucose 104 Calcium Level 8.3 Magnesium Level 2.3 Sodium Level 138 Potassium Level 4.2 Chloride Level 107 Carbon Dioxide Level 24.4 Anion Gap 7 Estimat Glomerular Filtration Rate 73 Total Creatine Kinase 75 Troponin I LESS THAN 0.02 Result Diagram: 06/28/17 1210 06/28/17 1210 Imaging Last 48 hours Impressions Chest X-Ray 06/28/17 1144 Signed Impressions: Service Date/Time: [place], June 28, 2017 11:51 - CONCLUSION: No acute disease. Trav Diana MD FACR Course Initial EKG has sinus bradycardia rate of [address] segment depressions or elevations. Caprini VTE Risk Assessment Caprini VTE Risk Assessment: Mod/High Risk (score >= 2) Caprini Risk Assessment Model Point Value = 1 Point Value = 2 Point Value = 3 Point Value = 5 Age 41-60 Minor surgery BMI > 25 kg/m2 Swollen legs Varicose veins or History of unexplained or recurrent spontaneous Oral contraceptives or hormone replacement Sepsis (< 1 month) Serious lung disease, including pneumonia (< 1 month) Abnormal pulmonary function Acute myocardial infarction Congestive heart failure (< 1 month) History of inflammatory bowel disease Medical patient at bed rest Age 61-74 Arthroscopic surgery Major open surgery (> 45 min) Laparoscopic surgery (> 45 min) Malignancy Confined to bed (> 72 hours) Immobilizing plaster cast Central venous access Age >= 75 History of VTE Family history of VTE Factor V Leiden Prothrombin [id number] Lupus anticoagulant Anticardiolipin antibodies Elevated serum homocysteine Heparin-induced thrombocytopenia Other congenital or acquired thrombophilia Stroke (< 1 month) Elective arthroplasty Hip, pelvis, or leg fracture Acute spinal cord injury (< 1 month) Prophylaxis Regimen Total Risk Factor Score Risk Level Prophylaxis Regimen 0-1 Low Early ambulation 2 Moderate Order ONE of the following: *Sequential Compression Device (SCD) *Heparin 5000 units SQ BID 3-4 Higher Order ONE of the following medications: *Heparin 5000 units SQ TID *Enoxaparin/Lovenox 40 mg SQ daily (WT < 150 kg, CrCl > 30 mL/min) *Enoxaparin/Lovenox 30 mg SQ daily (WT < 150 kg, CrCl > 10-29 mL/min) *Enoxaparin/Lovenox 30 mg SQ BID (WT < 150 kg, CrCl > 30 mL/min) AND/OR *Sequential Compression Device (SCD) 5 or more Highest Order ONE of the following medications: *Heparin 5000 units SQ TID (Preferred with Epidurals) *Enoxaparin/Lovenox 40 mg SQ daily (WT < 150 kg, CrCl > 30 mL/min) *Enoxaparin/Lovenox 30 mg SQ daily (WT < 150 kg, CrCl > 10-29 mL/min) *Enoxaparin/Lovenox 30 mg SQ BID (WT < 150 kg, CrCl > 30 mL/min) AND *Sequential Compression Device (SCD) Assessment and Plan Assessment and Plan * Chest pain: Patient will have serial cardiac enzymes and EKGs for ruling out purposes. He will be seen by Dr. Mccabe of cardiology and the chest pain center. Dr. Marin spoke with me regarding this patient, he is covering for Dr. bain. He states he spoke with Dr. bain and has requested a nuclear stress test in the morning and if that looks okay he can go home and follow him in his office but to call Dr. Alex back if it is abnormal and they will address that issue. * CAD: We'll reassess with stress testing. He will need to continue his medications and follow-up with Dr. bain. * Hyperlipidemia: Continue current medication. * GERD: Continue current medication. * Paroxysmal atrial fibrillation: Continue current medication. Patient is stable at this time. He is agreeable to this plan. Dickson Ragsdale Jun 28, 2017 15:23
[2017-06-28] MEDS ORDERED: ALPRAZolam 0.25 MG TAB PO PRN (15:30)
[2017-06-28] MEDS ORDERED: SODIUM CHLORIDE 0.9% FLUSH 5 ML FLUSH IVF PRN (15:30)
[2017-06-28] MEDS ORDERED: ONDANSETRON HCL 4 MG/2 ML VIAL IV PUSH PRN (15:30)
[2017-06-28] MEDS ORDERED: ACETAMINOPHEN/HYDROcodone 325 MG/7.5 MG TAB PO PRN (15:30)
[2017-06-28] MEDS ORDERED: ACETAMINOPHEN 500 MG CPLT PO PRN (15:30)
--- NOTE | 2017-06-28 15:47 | EKG ---
Date Performed: 06/28/2017 Time Performed: 11:47:39 PTAGE: 77 years EKG: SINUS BRADYCARDIA WITH FIRST DEGREE AV BLOCK LOW QRS VOLTAGE IN EXTREMITY LEADS ABNORMAL EC G No significant change from prior electrocardiogram. NO PREVIOUS TRACING DOCTOR: William Murray Interpretating Date/Time 06/28/2017 15:46:20
[2017-06-28 16:57] LABS: CREATINE KINASE 114 U/L (39-308)
[2017-06-28 17:10] LABS: CKMB 1.2 NG/ML (0.5-3.6)
[2017-06-28 19:49] LABS: CREATINE KINASE 82 U/L (39-308)
[2017-06-28] MEDS: SODIUM CHLORIDE 0.9% FLUSH 10 ML FLUSH IVF PRN (20:15)
[2017-06-28] MEDS ORDERED: MORPHINE SULFATE 2 MG/ML INJ IV PRN (20:15)
[2017-06-28] MEDS: SODIUM CHLORIDE 0.9% FLUSH 5 ML FLUSH IVF SCH (21:00)
[2017-06-28] MEDS ORDERED: levETIRAcetam 500 MG TAB PO SCH (22:45)
[2017-06-28] MEDS ORDERED: ATORVASTATIN 40 MG TAB PO SCH (22:45)
[2017-06-28] MEDS ORDERED: terazosin (22:47)
[2017-06-29] VITALS: PULSE 48
[2017-06-29 04:00] VITALS: BP 167/79; PULSE 51; PULSE 52; RESP 18; TEMP 98.5; O2SAT 96
[2017-06-29 07:26] VITALS: BP 176/78; PULSE 55; RESP 16; TEMP 97.9; O2SAT 96
[2017-06-29] MEDS ORDERED: cloNIDine HCL 0.1 MG TAB PO PRN (07:45)
[2017-06-29 08:15] VITALS: PULSE 56
[2017-06-29] MEDS: SODIUM CHLORIDE 0.9% FLUSH 10 ML FLUSH IVF PRN (08:22)
[2017-06-29] MEDS ORDERED: levETIRAcetam 500 MG TAB PO ONE (08:45)
[2017-06-29] MEDS ORDERED: ACETAMINOPHEN/HYDROcodone 325 MG/10 MG TAB PO PRN (08:45)
[2017-06-29] MEDS ORDERED: LISINOPRIL 10 MG TAB PO SCH (09:00)
[2017-06-29] MEDS ORDERED: ASPIRIN 325 MG TAB PO SCH (09:00)
[2017-06-29] MEDS: SODIUM CHLORIDE 0.9% FLUSH 5 ML FLUSH IVF SCH (09:00)
[2017-06-29] MEDS ORDERED: PANTOPRAZOLE SOD 40 MG DELAYED RELEASE TAB PO SCH (09:00)
[2017-06-29] MEDS ORDERED: CLOPIDOGREL 75 MG TAB PO SCH (09:00)
--- NOTE | 2017-06-29 09:37 | EKG ---
Date Performed: 06/28/2017 Time Performed: 18:46:46 PTAGE: 77 years EKG: SINUS BRADYCARDIA WITH FIRST DEGREE AV BLOCK ABNORMAL ECG NO SIG CHANGE PREVIOUS TRACING : 06/28/2017 15.49 DOCTOR: Ceferino Mccabe Interpretating Date/Time 06/29/2017 09:35:40
--- NOTE | 2017-06-29 09:38 | EKG ---
Date Performed: 06/28/2017 Time Performed: 15:49:32 PTAGE: 77 years EKG: SINUS BRADYCARDIA WITH FIRST DEGREE AV BLOCK WITH FREQUENT SUPRAVENTRICULAR PREMATURE COMPL EXES LOW QRS VOLTAGE IN EXTREMITY LEADS ABNORMAL ECG NO SIG CHANGE PREVIOUS TRACING : 06/28/2017 11.47 DOCTOR: Ceferino Mccabe Interpretating Date/Time 06/29/2017 09:36:29
[2017-06-29] MEDS ORDERED: REGADENOSON INJ 0.4 MG/5 ML SYR ONE (10:06)
[2017-06-29] MEDS ORDERED: TERA2CAP3 PO (11:40)
[2017-06-29 11:59] VITALS: BP 145/70; PULSE 56; RESP 16; TEMP 98; O2SAT 97
--- NOTE | 2017-06-29 12:19 | RADRPT ---
EXAM DATE/TIME: 06/29/2017 09:46 [facility] COMPARISON: No previous studies available for comparison. INDICATIONS : Bilateral chest pain with nausea and dyspnea. Angina. DOSE: 26.7 mCi Tc99m Myoview at stress. 8.8 mCi Tc99m Myoview at rest. 0.4 mg Lexiscan STRESS SYMPTOMS: Chest pain. EJECTION FRACTION: > 70% MEDICAL HISTORY : Hypercholesterolemia. Hypertension. SURGICAL HISTORY : Coronary artery stent. Total knee replacement, right. Fusion, cervical. ENCOUNTER: Initial ACUITY: 3 weeks PAIN SCALE: 5/10 LOCATION: Bilateral chest TECHNIQUE: The patient underwent pharmacologic stress with infusion of prescribed dose. Continuous ECG tracing was monitored during stress. Gated SPECT imaging was performed after stress and conventional SPECT i maging was performed at rest. The examination was performed on a SPECT/CT scanner, both attenuation and non-corrected datasets were reviewed. FINDINGS: DISTRIBUTION: The maximum perfused segment at stress is in the septal wall. PERFUSION STUDY: The pattern of perfusion at stress is within normal limits. GATED STUDY: There is intact wall motion and thickening without hypokinetic or dyskinetic segments. CONCLUSION: Unremarkable myocardial perfusion examination. RISK CATEGORY: Low Eric Garcia MD on June 29, 2017 at 12:17 Board Certified Radiologist. This report was verified electronically.
--- NOTE | 2017-06-29 12:56 | HHI.DCPOC ---
Discharge Care Plan Diagnosis: (1) H/O heart artery stent (2) Chest pain (3) CAD (coronary artery disease) (4) Hypertension Goals to Promote Your Health * To prevent worsening of your condition and complications * To maintain your health at the optimal level Directions to Meet Your Goals Take your medications as prescribed Follow your dietary instruction Follow activity as directed Keep your appointments as scheduled Take your immunizations and boosters as scheduled If your symptoms worsen call your PCP, if no PCP go to Urgent Care Center or Emergency Room Smoking is Dangerous to Your Health. Avoid second hand smoke Call the 24-hour hour crisis hotline for domestic abuse at Dickson Ragsdale Jun 29, 2017 12:56
--- NOTE | 2017-06-30 12:53 | TR ---
Date Performed: 06/29/2017 Time Performed: 10:33:09 DOCTOR: Ceferino Mccabe DRUG LIST: CLINICAL HISTORY: REASON FOR TEST: CHEST PAIN REASON FOR ENDING: OBSERVATION: CONCLUSION: Lexiscan stress test was performed under standard four minute protocol. Radionuclide was injected one minute prior to ending the test. No electrocardiographic abormalities were present to suggest ischemia. Nuclear imaging and interpretation are pending. COMMENTS:
== END 2017-06-29 14:53 | disposition home or self-care (01) ==
LOC: NEPE 11:16 → NEDA 14:08 → NEPHCDU 15:54
PROVIDERS: ADMIT Internal Medicine Interventional Cardiology; ATTEND Internal Medicine Interventional Cardiology
DX: R07.89 Other chest pain (principal); R00.1 Bradycardia, unspecified; R06.02 Shortness of breath; I44.0 Atrioventricular block, first degree; R94.31 Abnormal electrocardiogram [ECG] [EKG]; R11.0 Nausea; I25.10 Atherosclerotic heart disease of native coronary artery without angina pectoris; I48.0 Paroxysmal atrial fibrillation; I10 Essential (primary) hypertension; E78.00 Pure hypercholesterolemia, unspecified; K21.9 Gastro-esophageal reflux disease without esophagitis; M54.2 Cervicalgia; M25.519 Pain in unspecified shoulder; G89.29 Other chronic pain; F41.9 Anxiety disorder, unspecified; M54.30 Sciatica, unspecified side; M19.90 Unspecified osteoarthritis, unspecified site; F12.90 Cannabis use, unspecified, uncomplicated; Z87.891 Personal history of nicotine dependence; Z95.5 Presence of coronary angioplasty implant and graft; Z79.899 Other long term (current) drug therapy; Z79.02 Long term (current) use of antithrombotics/antiplatelets; Z96.651 Presence of right artificial knee joint; Z98.1 Arthrodesis status
CPT/HCPCS: 71010; 78452; 80048; 82550; 82552; 83735; 84484; 85025; 85610; 85730; 93005; 93017; 96374; 99285; A9502; G0378; J2270; J2785